=== PATIENT | female | born 1960 | race Caucasian/White ===

== ENCOUNTER 2021-09-28 05:51 | Emergency (ER) | payer MEDICARE, MEDICAID, SELFPAY ==
[2021-09-28 06:21] VITALS: BP 167/80; PULSE 70; RESP 14; TEMP 36.7; O2SAT 97; BMI 22.6
--- NOTE | 2021-09-28 06:41 | ECG_ITS ---
Test Reason : headache Blood Pressure : / mmHG Vent. Rate : 068 BPM Atrial Rate : 068 BPM P-R Int : 136 ms QRS Dur : 080 ms QT Int : 410 ms P-R-T Axes : 070 028 035 degrees QTc Int : 435 ms Normal sinus rhythm Low voltage QRS Nonspecific ST abnormality Inferior leads Abnormal ECG No previous ECGs available Referred By: Pacheco Martinez Electronically Signed By:TIA LOUIE MD
--- NOTE | 2021-09-28 06:44 | ED.GENADULT ---
HPI - General Adult General Chief complaint: Headache Stated complaint: high bp Time Seen by Provider: 09/28/21 06:17 Source: patient and family (Daughter, Alem) Mode of arrival: ambulatory Limitations: no limitations History of Present Illness HPI narrative: 61-year-old female who presents emergency department for evaluation of elevated blood pressure, headache, chest pain, abdominal pain and weakness x2 weeks. Patient has a history of hypertension. She states that her hypertension is been under relatively good control until the last 2 weeks when she has been having elevated blood pressure readings. She states that her systolic blood pressure ranges from 190-200. She states that over the past 2 weeks she has had a constant headache. The headache is located diffusely throughout her entire head. The headache is a throbbing/pounding sensation which is greater than 10/10 and is currently greater than 10/10. She states that she has associated dizziness, nausea and vomiting. She states that occasionally she has blurred vision and tunnel vision. She states that she has been feeling very weak and has not been able to sleep. She states that she vomits 2 to 3 times a day. She has noted chills but denied fever. She complains of a constant, tightness in her chest which is moderate in intensity, worse with movement, not worse with breathing. She has occasional shortness of breath but no dyspnea on exertion. She states that she has also been having abdominal pain, she runs or hand diffusely over abdomen asked to localize the pain, she has difficulty describing the character severity of the pain. The patient was seen 2 weeks prior at [facility] Emergency Department and she states that she had a CT scan, chest x-ray and laboratory evaluation which she states was unremarkable. Patient did see her pbx mechanic who increased her antihypertensive medications. The patient's lisinopril was increased from 10 mg to 40 mg once a day. Patient's metoprolol was increased from 25 mg to 50 mg. This increase was made 1-2 weeks prior to evaluation. Related Data Previous Rx's Medication Instructions Recorded metoclopramide HCl 10 mg tablet 10 mg PO Q6H PRN #14 tab 09/28/21 (Reglan) morphine 15 mg immediate release 15 mg PO Q4-6H PRN #10 tab 09/28/21 tablet Allergies Allergy/AdvReac Type Severity Reaction Status Date / Time ibuprofen Allergy hives Verified 09/28/21 06:37 [From NeoProfen (ibuprofen lysn)(PF)] Review of Systems Review of Systems: Yes all other systems are reviewed and are negative [facility] Past Medical History [facility] Narrative: Past medical history: Hypertension, hyperlipidemia, asthma, fibromyalgia, chronic kidney disease. Past surgical history: None. Social history: She denies tobacco, alcohol and drug use. Social History Social History Alcohol intake: never Patient Tobacco Use Status: Never used Tobacco Use of substances other than those prescribed or required for medical reasons: No Advance Directives: No Advance Directives Information Provided: Yes Physical Exam Vital Signs: Vital Signs: Last Vital Signs Temp 98.1 F 09/28/21 06:21 Pulse 70 09/28/21 06:21 Resp 14 09/28/21 06:21 BP 167/80 H 09/28/21 06:21 Pulse Ox 97 09/28/21 06:21 Body Mass Index 22.6 Const: Other: Very pleasant and cooperative female patient, she appears anxious, she appears to be in distress secondary to her headache, she answers all questions appropriately. HENMT: Other: Patient has diffuse tenderness with palpation of her head with increased tenderness over the temporal areas bilaterally, forehead and occiput Ears: external ears normal General nose exam: Normal external nose present Face and sinus: Yes normal facial exam Mouth: Normal oral and palatal mucosa present Throat: Yes posterior oropharynx normal Eyes: General: appearance normal, both eyes and all related structures Pupils: Equal, round and reactive pupils present Neck: Neck: Yes normal visual inspection, Yes no lymphadenopathy, Yes trachea midline and Yes supple Chest: Chest palpation & inspection: normal inspection of the chest and tenderness (Diffuse anterior chest tenderness, moderate) Resp: Effort & Inspection: normal respiratory effort and able to speak in complete sentences Auscultation: clear to auscultation bilaterally Cardio: Rate: regular rate Rhythm: regular rhythm Heart sounds: S1 normal heart sound present, S2 normal heart sound present and no murmurs GI: Inspection: Yes normal to inspection Palpation (GI): Soft to palpation, nontender and no guarding Auscultation: normal bowel sounds : General: Yes no CVA tenderness Back/Spine/Pelvis: Back: no CVA tenderness Skin: General skin exam: no rashes or lesions noted Neuro: Cranial nerves: Yes CN's II-XII intact bilaterally and Yes Equal, round and reactive pupils present Cognition (Neuro): normal cognition Motor exam (neuro): 5/5 motor strength present throughout Extrem: General: Yes normal to inspection Psych: Appearance: grossly normal Speech and movement: Normal speech and movement present Affect: Anxious affect present Attitude: cooperative Thought process: Normal thought process present Thought content: Normal thought content present Course Course Course Narrative: 61-year-old female with history of hypertension who presents emergency department for evaluation of 2 weeks elevated blood pressures with systolics ranging in the 190-200 range, constant headache, constant chest pain, nausea and vomiting 2-3 times daily, dizziness, weakness, and abdominal pain. Patient did see her pbx mechanic and the patient's antihypertensive medications were increased approximately 1 or 2 weeks prior. The patient has been taking Tylenol for headaches with no relief. Vital signs revealed an elevated blood pressure of 167/80 otherwise were unremarkable. The patient's physical examination did reveal an anxious female patient, she had diffuse tenderness with palpation of her scalp with increased tenderness over the temporal areas, frontal area and occiput. Patient also had chest wall tenderness and diffuse abdominal tenderness. I will attempt to obtain the previous records from [facility] but she did have a CT scan her head at that time so I will not given of the CT scan on her today. I did order a CBC, CMP, CRP, ESR, lipase, urinalysis.The patient's headache will be treated with Reglan 10 mg IV, Benadryl 50 mg IV and acetaminophen 650 mg orally. 0919: . Laboratory evaluation: Patient's laboratory evaluation revealed anemia with an H&H of 10.9 and 32.6. This was similar to the patient's [facility] laboratory evaluation 09/14/2020 11/30/2016 and 1.7. Patient was anemic with an H&H of 10.9 and 32.6 again this was similar to the [facility] values of 10.6 and 33.6. Patient's ESR and CRP were only slightly elevated at 16 and 0.69 suggesting that she does not have temporal arteritis. CT scan of the brain done at [facility] on 09/23/2021 revealed no acute intracranial process. The patient mild periventricular and subcortical white matter disease consistent with chronic small-vessel ischemia. The patient got some relief with the regular and Benadryl put required morphine 4 mg IV to to improve her headache. The patient's blood pressure also improved with treatment. The patient will be treated with the following medications for her headaches: Regular 10 mg, extra-strength Tylenol 1000 mg and morphine 4 mg every 6 hours as needed for pain. Patient was advised to only take her blood pressures on Saturday, Saturday and Saturday mornings and record these values to discuss with her doctor. Patient was given printed and verbal instructions and discharged home. Medical Decision Making Lab Data Result diagrams: 09/28/21 07:35 09/28/21 07:35 Labs: Lab Results 09/28/21 09/28/21 09/28/21 Range/Units 07:35 07:35 07:35 WBC 14.8 H (4.8-10.8) X10*3/uL RBC 3.81 L (4.20-5.50) X10*6/uL Hgb 10.9 L (12.0-16.0) g/dl Hct 32.6 L (37.0-47.0) % MCV 85.6 (80.0-98.0) fL MCH 28.6 (27.0-33.0) pg MCHC 33.4 (31.0-35.0) g/dl RDW 14.0 (11.0-16.0) % Plt Count 422 H (160-400) X10*3/uL MPV 9.7 (9.4-12.3) fL Immature Gran % (Auto) 0.3 (0.0-0.4) % Neut % (Auto) 69.8 (45-73) % Lymph % (Auto) 26.0 (20-40) % [place] % (Auto) 3.1 (2-11) % Eos % (Auto) 0.5 (0-4) % Baso % (Auto) 0.3 (0-2) % Lymph # (Auto) 3.9 (1.2-4.9) X10*3/uL [place] # (Auto) 0.5 (0.1-1.2) X10*3/uL Eos # (Auto) 0.1 (0.0-0.4) X10*3/uL Baso # (Auto) 0.0 (0.0-0.2) X10*3/uL Abs Immat Gran (auto) 0.04 H (0.00-0.03) X10*3/uL Absolute Neuts (auto) 10.4 H (2.0-8.3) x10*3/uL Absolute Nucleated RBC 0.000 (0.0-0.012) X10*3/uL Nucleated RBC % (auto) 0.0 (0.0-0.2) /100WBC ESR 16 (0-20) MM/HR Sodium 143 (135-145) mmol/L Potassium 5.0 (3.3-5.1) mmol/L Chloride 112 H (96-108) mmol/L Carbon Dioxide 22 (22-29) mmol/L Anion Gap 14 (12-20) BUN 25 H (9-16) mg/dL Creatinine 1.62 H (0.5-1.4) mg/dL Estim Creat Clear Calc 29.5 Estimated GFR 33 Random Glucose 101 (60-115) mg/dL Calcium 9.5 (8.4-10.2) mg/dL Total Bilirubin 0.3 (0.0-1.0) mg/dL AST 12 (5-31) U/L ALT 11 (0-31) U/L Alkaline Phosphatase 62 (39-117) U/L Troponin I High Sens (<3.5-17.0) ng/L C-Reactive Protein 0.69 H (< or = 0.50) mg/dL Total Protein 7.0 (6.5-8.0) g/dL Albumin 4.3 (3.5-5.0) g/dL Lipase 56 (8-78) U/L Urine Color Urine Appearance Urine pH (5.0-8.0) Ur Specific [place]ph[place] (1.005-1.025) Urine Protein (NEG-TRACE) MG/DL Urine Glucose (UA) (NEG) MG/DL Urine Ketones (NEG) MG/DL Urine Blood (NEG) Urine Nitrite (NEG) Ur Leukocyte Esterase (NEG) Urine RBC (0) /HPF Urine WBC (0-4) /HPF Ur Squamous Epith Cells /LPF Urine Bacteria /LPF 09/28/21 09/28/21 Range/Units 07:35 08:46 WBC (4.8-10.8) X10*3/uL RBC (4.20-5.50) X10*6/uL Hgb (12.0-16.0) g/dl Hct (37.0-47.0) % MCV (80.0-98.0) fL MCH (27.0-33.0) pg MCHC (31.0-35.0) g/dl RDW (11.0-16.0) % Plt Count (160-400) X10*3/uL MPV (9.4-12.3) fL Immature Gran % (Auto) (0.0-0.4) % Neut % (Auto) (45-73) % Lymph % (Auto) (20-40) % [place] % (Auto) (2-11) % Eos % (Auto) (0-4) % Baso % (Auto) (0-2) % Lymph # (Auto) (1.2-4.9) X10*3/uL [place] # (Auto) (0.1-1.2) X10*3/uL Eos # (Auto) (0.0-0.4) X10*3/uL Baso # (Auto) (0.0-0.2) X10*3/uL Abs Immat Gran (auto) (0.00-0.03) X10*3/uL Absolute Neuts (auto) (2.0-8.3) x10*3/uL Absolute Nucleated RBC (0.0-0.012) X10*3/uL Nucleated RBC % (auto) (0.0-0.2) /100WBC ESR (0-20) MM/HR Sodium (135-145) mmol/L Potassium (3.3-5.1) mmol/L Chloride (96-108) mmol/L Carbon Dioxide (22-29) mmol/L Anion Gap (12-20) BUN (9-16) mg/dL Creatinine (0.5-1.4) mg/dL Estim Creat Clear Calc Estimated GFR Random Glucose (60-115) mg/dL Calcium (8.4-10.2) mg/dL Total Bilirubin (0.0-1.0) mg/dL AST (5-31) U/L ALT (0-31) U/L Alkaline Phosphatase (39-117) U/L Troponin I High Sens 3.6 (<3.5-17.0) ng/L C-Reactive Protein (< or = 0.50) mg/dL Total Protein (6.5-8.0) g/dL Albumin (3.5-5.0) g/dL Lipase (8-78) U/L Urine Color YELLOW Urine Appearance CLEAR Urine pH 5.5 (5.0-8.0) Ur Specific [place] 1.010 (1.005-1.025) Urine Protein 2+ H (NEG-TRACE) MG/DL Urine Glucose (UA) NEG (NEG) MG/DL Urine Ketones NEG (NEG) MG/DL Urine Blood 1+ H (NEG) Urine Nitrite NEG (NEG) Ur Leukocyte Esterase NEG (NEG) Urine RBC 0-2 (0) /HPF Urine WBC 0-2 (0-4) /HPF Ur Squamous Epith Cells TRACE /LPF Urine Bacteria TRACE /LPF ECG Data Attestation: I personally reviewed and interpreted this ECG as follows: Interpretation: 711: Normal sinus rhythm with a rate of 68, normal TX interval, QRS duration and QTC interval, inverted T-wave in V1, no ST segment elevation, no ST segment depression, no PACs, no PVCs. This is a normal EKG. Discharge Plan Discharge Clinical Impression: Headache Qualifiers: Headache type: unspecified Headache chronicity pattern: acute headache Intractability: not intractable Qualified Code(s): R51.9 - Headache, unspecified Hypertension Qualifiers: Hypertension type: primary hypertension Qualified Code(s): I10 - Essential (primary) hypertension Patient Disposition: Home, Self-Care Additional Instructions: The reason to check your blood pressure at home is to give your doctor an idea of what your blood pressure does when you are not in the doctor's office. Take your blood pressure in the morning, Mondays, Wednesdays and Fridays and then write down these readings to discuss them with your doctor at your next visit. If you doctor decides that your blood pressure readings are high than your doctor will start you on medications. Blood pressure medications often takes 1-2 months or longer to get your blood pressure under control. Lowering your blood pressure to rapidly or getting your blood pressure too low quickly can make you feel bad. For your headaches take the following 3 medications together every 6 hours: Regular 10 mg Tylenol (acetaminophen) 500 mg pills, 2 pills Morphine [address] work while taking morphine since they can cause sleepiness. Morphine is a narcotic medication that can be addicting. If you are concerned about addiction you can ask the pharmacist for less pills or do not get this prescription filled. Follow-up with your doctor to discuss your blood pressure readings. Please return to the emergency department if your symptoms get worse or if you develop any new symptoms that are concerning to you. Prescriptions: New morphine 15 mg tablet 15 mg PO Q4-6H PRN (Reason: pain) Qty: 10 RF: 0 metoclopramide HCl [Reglan] 10 mg tablet 10 mg PO Q6H PRN (Reason: nausea and vomiting) Qty: 14 RF: 0
[2021-09-28] MEDS: Metoclopramide HCl 10 MG/2 ML VIAL IVPUSH (07:06)
[2021-09-28] MEDS: Acetaminophen 325 MG TABLET 650 MG PO (07:06)
[2021-09-28] MEDS: diphenhydrAMINE HCL 50 MG/ML VIAL IVPUSH (07:06)
--- NOTE | 2021-09-28 07:15 | PC.NURSE ---
report taken from abi mccrary pt here for headache r/t htn, sts having blurry vision, denies vision changes. medicated per emar, awaiting lab results. wctm.
[2021-09-28 07:39] LABS: MANUAL DIFF FLAG NO
[2021-09-28 07:42] LABS: Basophils Percent Auto 0.3 % (0-2); Eosinophils Absolute Auto 0.1 X10*3/uL (0.0-0.4); Eosinophils Percent Auto 0.5 % (0-4); Hematocrit 32.6 % (37.0-47.0); Hemoglobin 10.9 g/dl (12.0-16.0); Imm Gran Abs Auto 0.04 X10*3/uL (0.00-0.03); Imm Gran Pct Auto 0.3 % (0.0-0.4); Lymphocytes Absolute Auto 3.9 X10*3/uL (1.2-4.9); Mean Corpuscular HGB Conc 33.4 g/dl (31.0-35.0); Mean Corpuscular Hemoglobin 28.6 pg (27.0-33.0); Mean Corpuscular Volume 85.6 fL (80.0-98.0); Mean Platelet Volume 9.7 fL (9.4-12.3); Monocytes Absolute Auto 0.5 X10*3/uL (0.1-1.2); Monocytes Percent Auto 3.1 % (2-11); Neutrophils Absolute Auto 10.4 x10*3/uL (2.0-8.3); Neutrophils Percent Auto 69.8 % (45-73); Platelet Count 422 X10*3/uL (160-400); Red Blood Count 3.81 X10*6/uL (4.20-5.50); White Blood Count 14.8 X10*3/uL (4.8-10.8)
[2021-09-28 07:59] LABS: Troponin-I High Sensitivity 3.6 ng/L (<3.5-17.0)
[2021-09-28] MEDS: Morphine Sulfate 4 MG/ML CARTRIDGE IVPUSH ×2 (07:59→09:43)
[2021-09-28 08:02] LABS: Alanine Aminotransferase 11 U/L (0-31); Albumin Level 4.3 g/dL (3.5-5.0); Alkaline Phosphatase 62 U/L (39-117); Anion Gap 14 (12-20); Aspartate Amino Transferase 12 U/L (5-31); Bilirubin Total 0.3 mg/dL (0.0-1.0); Blood Urea Nitrogen 25 mg/dL (9-16); C Reactive Protein 0.69 mg/dL (< or = 0.50); Calcium 9.5 mg/dL (8.4-10.2); Carbon Dioxide 22 mmol/L (22-29); Chloride 112 mmol/L (96-108); Creatinine Clr Calc Pharmacy 29.5; Estimated Glomerular Filt Rate 33; Glucose Random 101 mg/dL (60-115); Lipase 56 U/L (8-78); Sodium 143 mmol/L (135-145)
[2021-09-28 08:26] LABS: Erythrocyte Sedimentation Rate 16 MM/HR (0-20)
[2021-09-28 08:54] LABS: Appearance Urine CLEAR; Color Urine YELLOW; Glucose Urine UA NEG (NEG); Leukocyte Esterase Urine NEG (NEG); Nitrite Urine NEG (NEG); PH 5.5 (5.0-8.0); UACC Culture Trigger NO; Urine Blood 1+ (NEG); Urine Ketones NEG (NEG); Urine Protein 2+ MG/DL (NEG-TRACE)
--- NOTE | 2021-09-28 09:04 | PC.NURSE ---
sts headache feeling better after morphine, able to ambulate to bathroom w steady gait to provide ua spec.
[2021-09-28 09:13] LABS: Bacteria Urine TRACE /LPF; RBC Urine 0-2 /HPF (0); Squamous Epithelial Cell Urine TRACE /LPF; WBC Urine 0-2 /HPF (0-4)
== END 2021-09-28 10:00 | disposition home or self-care (01) ==
PROVIDERS: Emergency Provider Emergency Medicine Emergency Medical Services
DX: R51.9 Headache, unspecified (principal); I10 Essential (primary) hypertension; R53.1 Weakness; R68.83 Chills (without fever); R06.02 Shortness of breath; Z79.899 Other long term (current) drug therapy
CPT/HCPCS: 36415; 80053; 81001; 83690; 84484; 85025; 85652; 86140; 93005; 96374; 96375; 96376; 99285; J1200; J2270; J2765